=== PATIENT | male | born 1975 | race Caucasian/White ===

== ENCOUNTER → 2016-12-04 | Day surgery (SDC) | payer BC ==
[~2016-12-04] MED LIST: Bupivacaine 0.25%/EPINEPHrine 1:200,000 30 ML SDV ONE; Dexamethasone 4 MG/ML SDV ONE; Lactated Ringers 1,000 ML IV SCH; Neostigmine Methylsulfate 1 MG/ML 5 ML Syringe ONE; Ondansetron 4 MG/2 ML SDV ONE; Propofol 200 MG/20 ML SDV ONE; Rocuronium 50 MG/5 ML Vial ONE; Succinylcholine/Normal Saline 200 MG/10 ML Syringe ONE; ceFAZolin 2 GM in Premix Bag 1 BAG IV ONE; fentaNYL 250 MCG/5 ML SDV ONE; methylPREDNISolone Acetate 80 MG/ML SDV ONE
[2016-12-04 09:59] VITALS: BP 141/78
== END ==
LOC: JP.SDS 09:12
PROVIDERS: ATTEND Orthopaedic Surgery
DX: S83.203A Other tear of unspecified meniscus, current injury, right knee, initial encounter (principal); Z53.8 Procedure and treatment not carried out for other reasons
CPT/HCPCS: J1040; J1100; J2405; J2704; J3010; J7120

== ENCOUNTER 2017-03-04 07:01 | Day surgery (SDC) | payer BC ==
[2017-03-04] MEDS ORDERED: fentaNYL 100 MCG/2 ML SDV ONE (07:33)
[2017-03-04] MEDS ORDERED: Midazolam 1 MG/ML 2 ML SDV ONE (07:33)
[2017-03-04] MEDS ORDERED: Propofol 200 MG/20 ML SDV ONE (07:34)
[2017-03-04] MEDS ORDERED: Dextrose 5%-Lactated Ringers 1,000 ML IV SCH (08:15)
[2017-03-04 09:09] VITALS: BP 143/88
--- NOTE | 2017-03-07 12:25 | OR ---
DATE OF PROCEDURE: 03/04/2017 PREOPERATIVE DIAGNOSES: History of abdominal discomfort and bloating in the left lower quadrant with frequent loose bowel movements. POSTOPERATIVE DIAGNOSIS: Normal colonoscopic examination. OPERATIVE PROCEDURES: Flexible colonoscopy with; 1. Collection of stool for C and S. 2. Random colorectal biopsies to rule out microscopic colitis. ANESTHESIA: IV sedation. INDICATIONS FOR PROCEDURE: This is a 41-year-old presenting with a several-year history of some intermittent bloating and discomfort referable primarily to the left lower quadrant. He had a recent CT scan which was normal. He does have some frequent loose bowel movements again somewhat intermittently. No blood or bleeding has been reported. Plan is to proceed with a colonoscopy with biopsies and/or polypectomy as indicated. Potential risks including bleeding and perforation were discussed, and the patient wishes to proceed. DETAILS OF PROCEDURE: The patient was taken to the operating room and placed in a left lateral decubitus position. IV sedation was administered, after which the initial digital rectal exam was performed and was unremarkable. Colonoscope was then passed eventually to the level of the cecum. The prep was fairly good with there only being a small amount of liquid stool present to that level and no abnormalities were noticed. There were no areas of diverticular disease, no obvious colitis, no polyps or other signs of neoplasia. During the course of the procedure, some of the liquid stool was removed and sent for a full battery of stool microbiologic workup. To rule out microscopic colitis, random colorectal biopsies were obtained from throughout the colon and rectum. Minimal bleeding from the biopsy site was seen, and the procedure then concluded. The patient, by history, has something levar to an irritable bowel syndrome, i.e. some sort of functional disorder in all likelihood. We will await the biopsies to see if there are any signs of microscopic colitis. Otherwise, he will be following up with Darrin Decker in 7 to 10 days. Kenneth Hamilton MD /[id number]
== END 2017-03-04 09:15 | disposition home or self-care (01) ==
LOC: JP.SDS 07:01
PROVIDERS: ATTEND Surgery
DX: R10.32 Left lower quadrant pain (principal); R14.0 Abdominal distension (gaseous); R19.7 Diarrhea, unspecified
CPT/HCPCS: 45380; 87046; 87177; 87209; 87493; 87899; 88305; J2250; J2704; J3010; J7042